=== PATIENT | male | born 2000 | race Caucasian/White ===

== ENCOUNTER 2021-08-15 14:20 | Inpatient (IN) | payer BC ==
[~2021-08-15] VITALS: Ht 172.7 cm; Wt 68.0 kg
--- NOTE | ~2021-08-15 | CON ---
[address] [address] CONSULTATION Name: GENEVA WEBBER Room: [address] IN [place]#: [id number] Admission: 08/15/21 Attend Phys: Gucci Nickerson MD Discharge: Date of : 89 Report #: [id number] THIS REPORT FOR: cc: Jim Plata,Carolina Domingo MD ~ cc: Jim Plata DO DATE OF CONSULTATION: 08/15/2021 REQUESTING PHYSICIAN: Dr. Gucci iNckerson. PRIMARY CARE PHYSICIAN: Dr. Jim Plata. REASON FOR CONSULTATION: Abnormal liver enzymes secondary to Tylenol overdose. HISTORY OF PRESENT ILLNESS: This is a 20-year-old male who apparently attempted suicide by taking 20 tablets of Tylenol at 1:00 a.m. The patient reports that he then came to emergency room for help. He reports that he also had tried to do the same thing a week ago, but he had just taken 8 Tylenol at that time. He denies any nausea, vomiting, abdominal pain. Since admission, he had blood work, which showed intact hepatic function. His transaminases are mildly elevated. He has been started on N-acetylcysteine. PAST MEDICAL HISTORY: Significant for anxiety, depression, and autism. ALLERGIES: No known drug allergy. MEDICATIONS: Please refer to MAR. SOCIAL HISTORY: The patient lives at home. Denies tobacco or alcohol use. FAMILY HISTORY: The patient denies any family history of suicide or GI issues. REVIEW OF SYSTEMS: The patient appears his stated age, lying in hospital bed under no apparent distress. He denies any shortness of breath, chest pain, abdominal pain, neurologic disturbance. He reports that he is depressed and his affect is somewhat restricted. PHYSICAL EXAMINATION: VITAL SIGNS: Reveals normal vitals. LUNGS: Clear. CARDIOVASCULAR: Regular. ABDOMEN: Soft, nontender, nondistended. Bowel sounds are positive. NEUROLOGIC: The patient is alert and oriented x 3[place] [address] CONSULTATION Name: GENEVA WEBBER Room: [place] [address] ADM IN [facility]#: [id number] Admission: 08/15/21 Attend Phys: Gucci Nickerson MD Discharge: Date of : 89 Report #: [id number] neurologic deficit. LABORATORY DATA: Reveal sodium of 136, potassium 3.9, BUN is 9, creatinine 0.8, glucose is 147, AST is 19, total bilirubin 0.3, alkaline phosphatase is 43, ALT 26, albumin is 4.4. Tylenol level is 86. WBC is 9.8 with hemoglobin of 13.7 and platelets of 323. ASSESSMENT AND PLAN: The patient with depression and Tylenol overdose, admits to taking 20 Tylenol pills at 1:00 a.m. this morning. He has mild transaminitis, but his hepatic function is intact. He is on N-acetylcysteine protocol. We will continue to monitor hepatic function and complete the N-acetylcysteine protocol. We will make further recommendation based on the patient status. By: [id number] 1945Carolina Ortega MD /nt
[~2021-08-15 14:20] MED LIST: NORCO 5-325 TA1 EACH PO; PROZAC20 MG PO
[2021-08-15 14:32] VITALS: BP 116/70
--- NOTE | 2021-08-15 14:45 | NUR ---
PT CHANGED IN TO PSYCH SAFE GOWN AT THIS TIME. PT BELONGINGS PLACED IN BELONGINGS BAG AND GIVEN TO HOSPITAL SECURITY AT THIS TIME. PT AMBULATORY WITH STEADY GAIT TO BATHROOM TO PROVIDE URINE SAMPLE. WILL CONTINUE TO MONITOR.
--- NOTE | 2021-08-15 14:50 | NUR ---
SPOKE TO NAHEED FROM POISON CONTROL, RECOMMEND TYLENOL AND COINGESTION, AND LIVER FUNCTIONING TESTS. SHE MENTIONS THAT ACYTLCYSTINE IS UP TO PROVIDERS PROGRESSION
[2021-08-15 15:06] LABS: HEMATOCRIT 40.5 % (42.0-52.0); HEMOGLOBIN 13.7 gm/dL (14.0-18.0); MCH 28.9 pg (26.0-34.0); MCHC 33.9 g/dL (28.0-37.0); MCV 85.1 fL (80.0-100.0); MPV 7.5 fl. (7.2-11.1); NUCLEATED RBCS 0 /100WBC; PLATELET COUNT* 323 thou/uL (150-400); RBC 4.75 mil/uL (4.50-6.00); WBC 9.8 thou/uL (4.0-11.0)
[2021-08-15 15:07] LABS: URINE BILIRUBIN NEGATIVE (Negative); URINE BLOOD NEGATIVE (Negative); URINE CLARITY CLEAR; URINE COLOR YELLOW; URINE GLUCOSE-RANDOM NEGATIVE (Negative); URINE KETONES NEGATIVE (Negative); URINE LEUKOCYTES-REFLEX NEGATIVE (Negative); URINE NITRITE-REFLEX NEGATIVE (Negative); URINE PROTEIN NEGATIVE (Negative); URINE UROBILINOGEN 0.2 E.U./dl (0.2-1.0)
[2021-08-15 15:12] LABS: ACETAMINOPHEN 86 ug/mL (10-30); SALICYLATE < 2.8 mg/dL (2.8-20.0)
[2021-08-15 15:13] LABS: ALCOHOL < 10 mg/dL (<10); CALCIUM 8.6 mg/dL (8.5-10.1); CREATININE 0.8 mg/dL (0.6-1.3); POTASSIUM 3.9 mmol/L (3.5-5.1)
[2021-08-15 15:14] LABS: AMP/METHAMP Negative (Negative); BARBITURATES Negative (Negative); BENZODIAZEPINES Negative (Negative); COCAINE Negative (Negative); METHADONE Negative (Negative); OPIATES Negative (Negative); PCP Negative (Negative); THC Negative (Negative)
[2021-08-15 15:18] LABS: ALBUMIN 4.4 g/dL (3.4-5.0); TOTAL BILIRUBIN 0.3 mg/dL (<0.1-1.0); TOTAL PROTEIN 7.6 g/dL (6.4-8.2)
[2021-08-15 15:45] LABS: ABSOLUTE LYMPHOCYTES 0.4 thou/uL (0.8-5.3); ABSOLUTE MONOCYTES 0.1 thou/uL (0.0-1.2); ABSOLUTE NEUTROPHILS 9.3 thou/uL (1.6-8.1); PLATELET ESTIMATE ADEQUATE
--- NOTE | 2021-08-15 16:54 | NUR ---
FAMILY UPDATED AT THIS TIME WITH PT'S CONSENT.
--- NOTE | 2021-08-15 16:55 | NUR ---
DOUG (MOM) [phone] MARK (DAD) [phone] ADRIEL (BROTHER) [phone]
--- NOTE | 2021-08-15 17:17 | NUR ---
SPOKE TO ESTRADA REGARDING PATIENT. SHE RECOMMENDS THAT SINCE TYLENOL LEVEL IS STILL HIGH, TO REPEAT TYLENOL LEVEL NOW, AND CONTINUE ACETYLCYSTEINE FOR 21 HOURS. OBTAIN A PT/INR NOW, AND ANOTHER TYLENOL LEVEL 2 HOURS PRIOR TO THE END OF THE 21 HOUR ACETYLCYSTEINE AT (19HOUR). ESTRADA, IS FROM [employer].
[2021-08-15 17:57] LABS: INR 1.1; PROTIME 11.5 Seconds (9.20-11.50)
[2021-08-15 18:18] LABS: ALBUMIN 4.1 g/dL (3.4-5.0); ALKALINE PHOSPHATASE 37 U/L (46-116); DIRECT BILIRUBIN < 0.1 mg/dL (<0.1-0.3); SGOT 26 U/L (15-37); SGPT 32 U/L (30-65); TOTAL BILIRUBIN 0.4 mg/dL (<0.1-1.0); TOTAL PROTEIN 7.3 g/dL (6.4-8.2)
[2021-08-15 21:30] VITALS: BP 124/62
--- NOTE | 2021-08-15 21:30 | NUR ---
PT REPORT TO LARRY CAT AT THIS TIME.
[2021-08-15 21:39] VITALS: BP 130/75
[2021-08-15 22:00] VITALS: BP 121/68
[2021-08-15 23:00] VITALS: BP 125/63
[2021-08-16] VITALS (24 sets, daily range): BP systolic 114–134; BP diastolic 55–86
[2021-08-16 04:52] LABS: ABSOLUTE EOSINOPHILS 0.1 thou/uL (0.0-0.7); ABSOLUTE LYMPHOCYTES 2.8 thou/uL (0.8-5.3); ABSOLUTE MONOCYTES 0.4 thou/uL (0.0-1.2); ABSOLUTE NEUTROPHILS 3.4 thou/uL (1.6-8.1); BASOPHILS 0.7 %; EOSINOPHILS 1.1 %; HEMATOCRIT 38.3 % (42.0-52.0); HEMOGLOBIN 12.8 gm/dL (14.0-18.0); LYMPHOCYTES 42.1 %; MCH 28.6 pg (26.0-34.0); MCHC 33.5 g/dL (28.0-37.0); MCV 85.2 fL (80.0-100.0); MONOCYTES 5.6 %; MPV 7.3 fl. (7.2-11.1); NUCLEATED RBCS 0 /100WBC; PLATELET COUNT* 268 thou/uL (150-400); POLYS 50.5 %; RDW-CV 12.8 % (10.5-14.5); WBC 6.8 thou/uL (4.0-11.0)
[2021-08-16 05:06] LABS: CALCIUM 8.3 mg/dL (8.5-10.1); CREATININE 0.8 mg/dL (0.6-1.3)
[2021-08-16 05:08] LABS: POTASSIUM 2.6 mmol/L (3.5-5.1)
--- NOTE | 2021-08-16 06:19 | NUR ---
PT TRANSFERRED TO ICU 08/15/21 AT APPROX. 2145. PT IS A/OX4. VSS. ADMISSION ASSESSMENT COMPLETE CHARTED. PT HAS BEEN CALM, COOPERATIVE, AND PLEASANT ALL SHIFT. PT ATE A TURKEY SANDWICH. PT DENIES C/O N/V DURING SHIFT. PT DENIED C/O PAIN DURING SHIFT. PT'S K+ LAB WAS 2.6, ORDERES RECEIEVED PER MD HERNANDEZ TO START ELECTROLYTE PROTOCOL. MEDICATIONS ADMINISTERED PRESCRIBED. "ESTRADA" FROM POISON CONTROL CALLED TO FOLLOW UP ON PATIENT. IV MEDICATIONS DISCUSSED PER ESTRADA. NO CHANGES WERE RECOMMENDED. ESTRADA DISCUSSED LABS: PT/INR, LIVER FUNCTION TESTS, AND A TYLONEL LABS THAT NEED TO BE DRAWN AT 10 AM, WHICH IS THE (19TH HOUR OF TREATMENT). PT'S MOTHER DOUG CALLED TO GET AN UPDATE. PT'S MOTHER WAS TEARFUL ON THE PHONE BUT THANKFUL. PT HAS BEEN AWAKE ALL NIGHT, WATCHING TV. PT HAS BEEN ON SUICIDE PRECAUTIONS, ALONG WITH SITTER 1:1. ASSESSMENTS COMPLETE CHARTED. WILL CONT. TO MONITOR.
[2021-08-16 10:14] LABS: INR 1.2; PROTIME 12.3 Seconds (9.20-11.50)
[2021-08-16 10:15] LABS: ALBUMIN 3.4 g/dL (3.4-5.0); DIRECT BILIRUBIN 0.1 mg/dL (<0.1-0.3)
[2021-08-16 10:37] LABS: TOTAL BILIRUBIN 0.4 mg/dL (<0.1-1.0); TOTAL PROTEIN 6.2 g/dL (6.4-8.2)
[2021-08-17] VITALS (11 sets, daily range): BP systolic 85–123; BP diastolic 42–65
[2021-08-17 09:19] LABS: ALBUMIN 3.5 g/dL (3.4-5.0); CALCIUM 8.5 mg/dL (8.5-10.1); CREATININE 0.8 mg/dL (0.6-1.3); POTASSIUM 3.9 mmol/L (3.5-5.1); TOTAL BILIRUBIN 0.4 mg/dL (<0.1-1.0); TOTAL PROTEIN 6.3 g/dL (6.4-8.2)
[2021-08-17] MEDS ORDERED: PROZAC20 MG PO (10:53)
--- NOTE | 2021-08-17 16:04 | NUR ---
A&O X4. GOOD APPETITE. ON THE PHONE WITH FACILITY IN [place] NOW FOR POSSIBLE TRANSFER. VSS. DENIES PAIN.
--- NOTE | 2021-08-17 20:18 | NUR ---
2000 PT DCD VIA W/C PER TRANSPORTATION. PT TRANSPORTING TO [facility] IN [place]. PT AAOX4, PT IN NO ACUTE DISTRESS. PAPERS AND BELONIGNS GIVEN TO [employer] TECHNICIAN.
== END 2021-08-17 20:00 | DRG 918 ==
LOC: M.ERS 14:20 → M.ICU 16:03 → M.TBA-ER 16:03 → M.ICU 21:40
PROVIDERS: Emergency Medicine Emergency Medical Services; ADMIT Internal Medicine; ATTEND Internal Medicine
DX: T39.1X2A Poisoning by 4-Aminophenol derivatives, intentional self-harm, initial encounter (principal); Y92.89 Other specified places as the place of occurrence of the external cause; Z20.822 Contact with and (suspected) exposure to COVID-19; F41.9 Anxiety disorder, unspecified; F32.A Depression, unspecified